=== PATIENT | male | born 1985 | race Hispanic/Latino ===

== ENCOUNTER 2017-01-22 01:36 | Emergency (ER) | payer OTHER ==
[2017-01-22 01:44] VITALS: BP 129/70; PULSE 92; RESP 16; TEMP 98; O2SAT 98
--- NOTE | 2017-01-22 01:53 | ED PDOC ---
HPI: Psych/Substance Abuse Time Seen by Provider: 01/22/17 01:37 Chief Complaint (Nursing): Alcohol Ingestion Chief Complaint (Provider): Alcohol ingestion History Per: Patient History/Exam Limitations: no limitations Onset/Duration Of Symptoms: Mins (just prior to arrival) Current Symptoms Are (Timing): Still Present Modifying Factor(s): Alcohol Severity: Moderate Additional Complaint(s): 31 year old male with no pertinent medical history is brought into the ED by [place] police department for alcohol intoxication. Patient was found by police walking outside. He does not recall if he sustained head trauma. Patient denies having any other medical complaints. PMD: Not provided. Past Medical History Reviewed: Historical Data, Nursing Documentation, Vital Signs Vital Signs: Last Vital Signs Temp 98.0 F 01/22/17 01:41 Pulse 92 H 01/22/17 01:41 Resp 16 01/22/17 01:41 BP 129/70 01/22/17 01:41 Pulse Ox 98 01/22/17 01:41 - Medical History PMH: No Chronic Diseases - Surgical History Surgical History: Cholecystectomy - Family History Family History: States: Unknown Family Hx - Social History Alcohol: Social - Allergies Allergies/Adverse Reactions: Allergies Allergy/AdvReac Type Severity Reaction Status Date / Time No Known Allergies Allergy Verified 01/22/17 01:43 Review of Systems ROS Statement: Except As Marked, All Systems Reviewed And Found Negative Neurological: Positive for: Other (possible head injury) Physical Exam - Reviewed Nursing Documentation Reviewed: Yes Vital Signs Reviewed: Yes - Physical Exam Appears: Positive for: Non-toxic, No Acute Distress. Negative for: Well ( appears intoxicated) Head Exam: Positive for: NORMOCEPHALIC. Negative for: ATRAUMATIC (abrasion on the left upper frontal area) Skin: Positive for: Normal Color, Warm, Dry Eye Exam: Positive for: Normal appearance Cardiovascular/Chest: Positive for: Regular Rate, Rhythm Respiratory: Positive for: Normal Breath Sounds. Negative for: Respiratory Distress Neurologic/Psych: Positive for: Alert, vice president sales and marketing II-XII (in tact), Oriented (3x), Cerebellar Tests (normal), Gait (steady). Negative for: Motor/Sensory Deficits - ECG O2 Sat by Pulse Oximetry: 98 (RA) Pulse Ox Interpretation: Normal - CT Scan/US CT head w/o contrast Other Rad Studies (CT/US): Read By Radiologist, Radiology Report Reviewed (see MDM section for findings) Medical Decision Making Medical Decision Makin:37 Initial impression: 31 year old male with a head injury with alcohol intoxication. Plan: * CT head w/o contrast * reevaluation 2:24 CT head w/o contrast read and reviewed by radiologist FINDINGS: Brain: Unremarkable. No hemorrhage. No significant white matter disease. No edema. Ventricles: Unremarkable. No ventriculomegaly. Bones/joints: Unremarkable. No acute fracture. Soft tissues: Unremarkable. Sinuses: Unremarkable as visualized. No acute sinusitis. Mastoid air cells: Unremarkable as visualized. No mastoid effusion. IMPRESSION: Normal head/brain CT. Scribe Attestation: Documented by Kelsie Antoine, acting as a scribe for Sanjay Gutierrez MD. Provider Scribe Attestation: All medical record entries made by the Scribe were at my direction and personally dictated by me. I have reviewed the chart and agree that the record accurately reflects my personal performance of the history, physical exam, medical decision making, and the department course for this patient. I have also personally directed, reviewed, and agree with the discharge instructions and disposition. Disposition - Clinical Impression Clinical Impression: Alcohol intoxication, Head injury - Disposition Referrals: Alcoholics Anonymous [Outside] Disposition Time: 02:37 Condition: STABLE Instructions: Head Injury (ED), Alcohol Intoxication (ED)
--- NOTE | 2017-01-22 08:10 | CT ---
PROCEDURE: CT HEAD WITHOUT CONTRAST. HISTORY: head injury, intox COMPARISON: None available. TECHNIQUE: Axial computed tomography images were obtained through the head/brain without intravenous contrast. Radiation dose: Total exam DLP = 870.19 mGy-cm. This CT exam was performed using one or more of the following dose reduction techniques: Automated exposure control, adjustment of the mA and/or kV according to patient size, and/or use of iterative reconstruction technique. FINDINGS: HEMORRHAGE: No intracranial hemorrhage. BRAIN: No mass effect or edema. No atrophy or chronic microvascular ischemic changes. VENTRICLES: Unremarkable. No hydrocephalus. CALVARIUM: Unremarkable. PARANASAL SINUSES: Unremarkable as visualized. No significant inflammatory changes. MASTOID AIR CELLS: Unremarkable as visualized. No inflammatory changes. OTHER FINDINGS: None. IMPRESSION: No evidence of acute intracranial hemorrhage intracranial collection mass effect or midline shift. Preliminary report was submitted by virtual Radiology
== END 2017-01-22 03:05 | disposition home or self-care (01) ==
LOC: H.ER 01:36
DX: F10.10 Alcohol abuse, uncomplicated (principal); S09.90XA Unspecified injury of head, initial encounter; W19.XXXA Unspecified fall, initial encounter; Y92.89 Other specified places as the place of occurrence of the external cause